=== PATIENT | female | born 1990 ===

== ENCOUNTER 2021-12-12 10:17 | Outpatient (CLI) | payer OTHER | END 2021-12-12 12:45 | disposition home or self-care (01) | LOC: PRENATAL 10:17 | DX: O35.0XX0 Maternal care for (suspected) central nervous system malformation in fetus, not applicable or unspecified (principal); O35.3XX0 Maternal care for (suspected) damage to fetus from viral disease in mother, not applicable or unspecified; O28.1 Abnormal biochemical finding on antenatal screening of mother; Z3A.21 21 weeks gestation of pregnancy ==

== ENCOUNTER 2022-03-13 11:21 | Outpatient (CLI) | payer OTHER | END 2022-03-13 17:52 | disposition home or self-care (01) | LOC: OBS/DEL 11:21 | PROVIDERS: ATTEND Obstetrics & Gynecology | DX: O26.893 Other specified pregnancy related conditions, third trimester (principal); Z3A.34 34 weeks gestation of pregnancy; O26.843 Uterine size-date discrepancy, third trimester; O36.8130 Decreased fetal movements, third trimester, not applicable or unspecified; O60.03 Preterm labor without delivery, third trimester ==

== ENCOUNTER 2022-03-13 23:51 | Inpatient (IN) | payer OTHER ==
[~2022-03-13] VITALS: Ht 149.9 cm; Wt 54.9 kg
== END 2022-03-14 17:22 | disposition home or self-care (01) | DRG 776 ==
LOC: OB/GYN 23:51 → LDR 23:51 → OB/GYN 23:51
PROVIDERS: ADMIT Obstetrics & Gynecology; ATTEND Obstetrics & Gynecology
PROC: 0UQMXZZ Repair Vulva, External Approach (ICD-10-PCS; principal; 2022-03-13)
DX: O71.82 Other specified trauma to perineum and vulva (principal)

== ENCOUNTER → 2023-11-11 | Outpatient (CLI) | payer OTHER | END | disposition home or self-care (01) | LOC: PRENATAL 07:58 | PROVIDERS: ATTEND Obstetrics & Gynecology Maternal & Fetal Medicine | DX: O35.9XX0 Maternal care for (suspected) fetal abnormality and damage, unspecified, not applicable or unspecified (principal); O35.3XX0 Maternal care for (suspected) damage to fetus from viral disease in mother, not applicable or unspecified; O44.02 Complete placenta previa NOS or without hemorrhage, second trimester; Z3A.20 20 weeks gestation of pregnancy; Z87.51 Personal history of pre-term labor ==